=== PATIENT | female | born 1950 | race African-American/Black ===

== ENCOUNTER 2022-02-27 13:22 | Emergency (ER) | payer OTHER ==
[~2022-02-27] VITALS: Ht 162.6 cm; Wt 65.0 kg
[2022-02-27] MEDS ORDERED: KETOROLAC 60MG/2ML VIAL IM ONE (14:00)
[2022-02-27 14:45] VITALS: BP 128/70
== END 2022-02-27 16:30 | disposition home or self-care (01) ==
LOC: ER 13:22
DX: M54.89 Other dorsalgia (principal); I10 Essential (primary) hypertension; Z90.710 Acquired absence of both cervix and uterus; W01.0XXA Fall on same level from slipping, tripping and stumbling without subsequent striking against object, initial encounter; Y93.89 Activity, other specified; Y92.511 Restaurant or cafe as the place of occurrence of the external cause
CPT/HCPCS: 96372; 99283; J1885

== ENCOUNTER 2024-08-27 11:48 | Emergency (ER) | payer OTHER ==
[~2024-08-27] VITALS: Ht 167.6 cm; Wt 66.0 kg
[2024-08-27 11:52] VITALS: O2SAT 98
[2024-08-27 12:44] LABS: BASOPHILS % 0.3 % (0.0-2.0); EOSINOPHILS % 0.4 % (0.0-5.0); HEMATOCRIT. 40.5 % (36.0-48.0); HEMOGLOBIN. 13.9 g/dL (12.0-16.0); LYMPHOCYTES % 13.6 % (20.0-50.0); MEAN CORPUSCULAR HEMOGLOBIN 33.9 pg (28.0-32.0); MEAN CORPUSCULAR HGB CONC 34.4 g/dL (31.0-37.0); MEAN CORPUSCULAR VOLUME 98.8 fL (81.0-99.0); MEAN PLATELET VOLUME 8.6 fl (7.4-10.4); MONOCYTES % 9.3 % (2.0-8.0); NEUTROPHILS % 76.4 % (40.0-76.0); PLATELET 368 x1000/uL (130-400); RED CELL DISTRIBUTION WIDTH 14.1 % (11.6-14.6); WHITE BLOOD COUNT 8.7 x1000/uL (4.5-11.0)
[2024-08-27] MEDS: LACTATED RINGERS 1,000 ML IV SCH (12:48)
[2024-08-27 12:56] LABS: CHLORIDE 102 mEq/L (98-107); POTASSIUM 3.4 mEq/L (3.5-5.1); SODIUM 138 mEq/L (136-145)
[2024-08-27 12:57] LABS: CALCIUM 9.6 mg/dL (8.7-10.4); CARBON DIOXIDE 24 mEq/L (21-32)
[2024-08-27 13:02] LABS: CREATININE 1.4 mg/dL (0.6-1.0); GLUCOSE 143 mg/dL (70-105); UREA NITROGEN BLOOD 35 mg/dL (9-23)
[2024-08-27 13:03] LABS: TROPONIN I HIGH SENSITIVITY 20 ng/L (3.0-34)
[2024-08-27 13:04] LABS: ALANINE AMINOTRANSFERASE 38 IU/L (10-49); ALBUMIN 4.3 g/dL (3.2-4.8); ASPARTATE AMINOTRANSFERASE 41 IU/L (<34); BILIRUBIN DIRECT 0.2 mg/dL (<=3.0); BILIRUBIN TOTAL 0.7 mg/dL (0.1-1.0); PROTEIN TOTAL 8.5 g/dL (6.0-8.3)
[2024-08-27] MEDS: CEFTRIAXONE 1GM/50ML 50 ML IV ONE (13:09)
[2024-08-27 13:11] VITALS: TEMP 36.2
[2024-08-27] MEDS: AZITHROMYCIN 500MG/250ML 250 ML IV STA (13:55)
[2024-08-27 14:14] LABS: CLARITY URINE CLOUDY (CLEAR); COLOR URINE YELLOW (YELLOW); GLUCOSE URINE NEGATIVE (NEGATIVE); KETONES URINE NEGATIVE (NEGATIVE); LEUKOCYTE ESTERASE URINE 3+ (NEGATIVE); NITRITE URINE POSITIVE (NEGATIVE); OCCULT BLOOD URINE NEGATIVE (NEGATIVE); PROTEIN URINE 1+ (NEGATIVE); SPECIFIC GRAVITY URINE 1.011 (1.005-1.030); UROBILINOGEN URINE 0.2 E.U./dL (0.2-1.0)
[2024-08-27 14:36] LABS: TRIPLE PHOSPHATE CRYSTAL URINE 3+ /lpf
[2024-08-27 14:38] LABS: BACTERIA URINE 4+; RBC URINE 0-2 /hpf (0-2); SQUAMOUS EPITHELIAL CELL URINE FEW /lpf (RARE/1+); WBC URINE 15-25 /hpf (0-2); YEAST URINE NONE SEEN
[2024-08-27 15:14] LABS: TROPONIN I HIGH SENSITIVITY 18 ng/L (3.0-34)
[2024-08-27] MEDS: ENOXAPARIN 60MG/0.6ML SYR SUBCUT ONE (15:51)
[2024-08-27 16:28] VITALS: BP 116/80; PULSE 99; RESP 14; O2SAT 96
== END 2024-08-27 16:22 | disposition short-term general hospital (02) ==
LOC: ER 11:48
DX: N17.9 Acute kidney failure, unspecified (principal); F03.90 Unspecified dementia, unspecified severity, without behavioral disturbance, psychotic disturbance, mood disturbance, and anxiety; I10 Essential (primary) hypertension; Z86.73 Personal history of transient ischemic attack (TIA), and cerebral infarction without residual deficits; Z88.0 Allergy status to penicillin; Z20.822 Contact with and (suspected) exposure to COVID-19
CPT/HCPCS: 99291; 96365; 70450; 71045; 96367; 96366; 87426; 80076; 80048; 81003; 85025; 87040; 87086; 84484; 36415; 93005; 96372; J0456; J0696; J1650; A4606